=== PATIENT | female | born 1950 | race Caucasian/White ===

== ENCOUNTER 2016-02-14 | Outpatient (CLI) | payer OTHER | END 2016-02-14 13:11 | disposition home or self-care (01) | DX: M25.512 Pain in left shoulder (principal) ==

== ENCOUNTER 2016-02-21 | Outpatient (CLI) | payer OTHER | END 2016-02-21 13:12 | disposition home or self-care (01) | DX: M25.512 Pain in left shoulder (principal) ==

== ENCOUNTER 2016-03-06 | Outpatient (CLI) | payer OTHER | END 2016-03-06 15:34 | disposition home or self-care (01) | DX: M25.512 Pain in left shoulder (principal) ==

== ENCOUNTER 2016-03-13 | Outpatient (CLI) | payer OTHER | END 2016-03-13 16:36 | disposition home or self-care (01) | DX: M25.512 Pain in left shoulder (principal) ==

== ENCOUNTER 2016-03-20 | Outpatient (CLI) | payer OTHER | END 2016-03-20 15:29 | disposition home or self-care (01) | DX: M25.512 Pain in left shoulder (principal) ==

== ENCOUNTER 2016-04-03 | Outpatient (CLI) | payer OTHER | END 2016-04-03 13:12 | disposition home or self-care (01) | DX: M25.512 Pain in left shoulder (principal) ==

== ENCOUNTER 2016-04-10 | Outpatient (CLI) | payer OTHER | END 2016-04-10 13:12 | disposition home or self-care (01) ==

== ENCOUNTER 2016-04-17 13:10 | Outpatient (CLI) | payer OTHER | END 2016-04-17 13:11 | disposition home or self-care (01) | DX: M25.512 Pain in left shoulder (principal) ==

== ENCOUNTER 2016-04-24 13:20 | Outpatient (CLI) | payer OTHER | END 2016-04-24 13:21 | disposition home or self-care (01) | DX: M25.512 Pain in left shoulder (principal); M54.6 Pain in thoracic spine ==

== ENCOUNTER 2016-05-01 13:12 | Outpatient (CLI) | payer OTHER | END 2016-05-01 13:13 | disposition home or self-care (01) | DX: M25.512 Pain in left shoulder (principal) ==

== ENCOUNTER 2016-05-08 13:16 | Outpatient (CLI) | payer OTHER | END 2016-05-08 13:17 | disposition home or self-care (01) | DX: M25.512 Pain in left shoulder (principal) ==

== ENCOUNTER 2016-05-15 13:07 | Outpatient (CLI) | payer OTHER | END 2016-05-15 13:08 | disposition home or self-care (01) | DX: M25.512 Pain in left shoulder (principal) ==

== ENCOUNTER 2016-06-05 13:15 | Outpatient (CLI) | payer OTHER | END 2016-06-05 23:59 | DX: M25.512 Pain in left shoulder (principal); M54.6 Pain in thoracic spine ==

== ENCOUNTER 2016-06-12 13:14 | Outpatient (CLI) | payer OTHER | END 2016-06-12 13:15 | disposition home or self-care (01) | DX: M25.512 Pain in left shoulder (principal) ==

== ENCOUNTER 2016-06-19 13:15 | Outpatient (CLI) | payer OTHER | END 2016-06-19 13:16 | disposition home or self-care (01) | DX: M25.512 Pain in left shoulder (principal) ==

== ENCOUNTER 2016-06-22 12:05 | Outpatient (CLI) | payer OTHER | END 2016-06-22 12:06 | disposition home or self-care (01) | DX: C34.90 Malignant neoplasm of unspecified part of unspecified bronchus or lung (principal) ==

== ENCOUNTER 2016-06-26 13:34 | Outpatient (CLI) | payer OTHER | END 2016-06-26 13:35 | disposition home or self-care (01) | DX: M25.512 Pain in left shoulder (principal); M54.6 Pain in thoracic spine ==

== ENCOUNTER 2016-07-03 13:15 | Outpatient (CLI) | payer OTHER | END 2016-07-03 13:16 | disposition home or self-care (01) | LOC: CAM 13:15 | PROVIDERS: ATTEND Internal Medicine | DX: M25.512 Pain in left shoulder (principal) | CPT/HCPCS: 97810; 97811 ==

== ENCOUNTER 2016-07-10 13:20 | Outpatient (CLI) | payer OTHER | END 2016-07-10 13:21 | disposition home or self-care (01) | LOC: CAM 13:20 | PROVIDERS: ATTEND Internal Medicine | DX: M25.512 Pain in left shoulder (principal) | CPT/HCPCS: 97810; 97811 ==

== ENCOUNTER 2016-07-24 15:27 | Outpatient (CLI) | payer OTHER | END 2016-07-24 15:28 | disposition home or self-care (01) | LOC: CAM 15:27 | PROVIDERS: ATTEND Internal Medicine | DX: M25.512 Pain in left shoulder (principal) | CPT/HCPCS: 97810; 97811 ==

== ENCOUNTER 2016-07-31 13:15 | Outpatient (CLI) | payer OTHER | END 2016-07-31 13:16 | disposition home or self-care (01) | LOC: CAM 13:15 | PROVIDERS: ATTEND Internal Medicine | DX: M25.512 Pain in left shoulder (principal) | CPT/HCPCS: 97810; 97811 ==

== ENCOUNTER 2016-08-01 11:00 | Outpatient (CLI) | payer OTHER ==
[2016-08-01 14:43] LABS: BILIRUBIN,URINE NEGATIVE (NEGATIVE)
[2016-08-01 14:47] LABS: UA w/ MICROSCOPIC CHARGE YES
[2016-08-01 15:19] LABS: WBC,URINE 0-3 /HPF (0-5)
[2016-08-01 15:20] LABS: UR CULTURE IF IND NOT INDICATED
== END 2016-08-01 11:01 | disposition home or self-care (01) ==
LOC: LAB.R 11:00
PROVIDERS: ATTEND Internal Medicine
DX: N39.0 Urinary tract infection, site not specified (principal); R30.0 Dysuria; R06.00 Dyspnea, unspecified
CPT/HCPCS: 81001; 81003; 87086

== ENCOUNTER 2016-08-05 15:55 | Outpatient (CLI) | payer OTHER | END 2016-08-05 15:56 | disposition home or self-care (01) | LOC: LAB.R 15:55 | PROVIDERS: ATTEND Physician Assistant Medical | DX: R35.0 Frequency of micturition (principal) | CPT/HCPCS: 87086 ==

== ENCOUNTER 2016-08-14 13:35 | Outpatient (CLI) | payer OTHER | END 2016-08-14 13:36 | disposition home or self-care (01) | PROVIDERS: ATTEND Internal Medicine | DX: M25.50 Pain in unspecified joint (principal); M54.6 Pain in thoracic spine | CPT/HCPCS: 97810; 97811 ==

== ENCOUNTER 2016-08-21 14:22 | Outpatient (CLI) | payer OTHER | END 2016-08-21 14:23 | disposition home or self-care (01) | LOC: CAM 14:22 | PROVIDERS: ATTEND Internal Medicine | DX: M25.512 Pain in left shoulder (principal); M54.6 Pain in thoracic spine; M25.50 Pain in unspecified joint | CPT/HCPCS: 97810; 97811 ==

== ENCOUNTER 2016-08-28 13:17 | Outpatient (CLI) | payer OTHER | END 2016-08-28 13:18 | disposition home or self-care (01) | LOC: CAM 13:17 | PROVIDERS: ATTEND Internal Medicine | DX: M25.512 Pain in left shoulder (principal); M54.6 Pain in thoracic spine; M25.50 Pain in unspecified joint | CPT/HCPCS: 97810; 97811 ==

== ENCOUNTER 2016-09-04 14:14 | Outpatient (CLI) | payer OTHER | END 2016-09-04 14:15 | disposition home or self-care (01) | LOC: CAM 14:14 | PROVIDERS: ATTEND Internal Medicine | DX: M25.512 Pain in left shoulder (principal) | CPT/HCPCS: 97810; 97811 ==

== ENCOUNTER 2016-09-11 13:14 | Outpatient (CLI) | payer OTHER | END 2016-09-11 13:15 | disposition home or self-care (01) | LOC: CAM 13:14 | PROVIDERS: ATTEND Internal Medicine | DX: M25.512 Pain in left shoulder (principal) | CPT/HCPCS: 97810; 97811 ==

== ENCOUNTER 2016-09-18 14:18 | Outpatient (CLI) | payer OTHER | END 2016-09-18 14:19 | disposition home or self-care (01) | LOC: CAM 14:18 | PROVIDERS: ATTEND Internal Medicine | DX: M25.512 Pain in left shoulder (principal) | CPT/HCPCS: 97810; 97811 ==

== ENCOUNTER 2016-09-25 13:23 | Outpatient (CLI) | payer OTHER | END 2016-09-25 13:24 | disposition home or self-care (01) | LOC: CAM 13:23 | PROVIDERS: ATTEND Internal Medicine | DX: M25.512 Pain in left shoulder (principal) | CPT/HCPCS: 97810; 97811 ==

== ENCOUNTER 2016-10-02 14:13 | Outpatient (CLI) | payer OTHER | END 2016-10-02 14:14 | disposition home or self-care (01) | LOC: CAM 14:13 | PROVIDERS: ATTEND Internal Medicine | DX: M25.512 Pain in left shoulder (principal) | CPT/HCPCS: 97810; 97811 ==

== ENCOUNTER 2016-10-08 07:52 | Outpatient (CLI) | payer OTHER ==
[2016-10-08 08:20] LABS: BASOPHILS % (AUTO) 0.9 %; EOSINOPHILS # (AUTO) 0.1 10^3/uL (0.0-0.7); EOSINOPHILS % (AUTO) 1.6 %; HCT - HEMATOCRIT 36.2 % (37.0-47.0); HGB - HEMOGLOBIN 12.5 g/dL (12.0-16.0); LYMPHOCYTES # (AUTO) 1.3 10^3/uL (1.5-3.5); LYMPHOCYTES % (AUTO) 33.9 %; MEAN CORPUSCULAR HEMOGLOBIN 32.9 pg (27.0-31.0); MEAN CORPUSCULAR HGB CONC 34.5 g/dL (32.0-36.0); MEAN CORPUSCULAR VOLUME 95.3 fL (81.0-99.0); MEAN PLATELET VOLUME 7.9 fL (7.9-10.8); MONOCYTES # (AUTO) 0.3 10^3/uL (0.0-1.0); MONOCYTES % (AUTO) 8.1 %; NEUTROPHILS # (AUTO) 2.1 10^3/uL (1.5-6.6); NEUTROPHILS % (AUTO) 55.5 %; NUCLEATED RED BLOOD CELLS AUTO 0.1 /100WBC; RED CELL DISTRIBUTION WIDTH 13.3 % (12.0-15.0); UNCORRECTED WHITE BLOOD COUNT 3.8 x10^3/uL; WHITE BLOOD COUNT 3.8 x10^3/uL (4.8-10.8)
[2016-10-08 08:40] LABS: ALBUMIN/GLOBULIN RATIO 1.8 (1.0-2.2); BILIRUBIN,TOTAL 0.7 mg/dL (0.2-1.0); BUN - BLOOD UREA NITROGEN 12 mg/dL (6-20); CALCIUM 9.1 mg/dL (8.5-10.3); CARBON DIOXIDE - CO2 25 mmol/L (21-32); CHLORIDE 97 mmol/L (101-111); CHOL/HDL RATIO 2.5 (<4.4); CHOLESTEROL 236 mg/dL; CREATININE 0.6 mg/dL (0.4-1.0); GFR - MDRD 101 (>89); GLUCOSE 107 mg/dL (70-100); HDL CHOLESTEROL 96 mg/dL; LDL/HDL RATIO 1.4 (<4.4); POTASSIUM 3.9 mmol/L (3.5-5.0); SODIUM 131 mmol/L (135-145); TOTAL PROTEIN 6.9 g/dL (6.7-8.2); TRIGLYCERIDES 52 mg/dL; URIC ACID 4.1 mg/dL (2.6-7.2); VLDL CHOLESTEROL 10 mg/dL
[2016-10-08 08:51] LABS: HEMOGLOBIN A1C 0.45 g/dL
== END 2016-10-08 07:53 | disposition home or self-care (01) ==
LOC: LAB 07:52
PROVIDERS: ATTEND Internal Medicine
DX: C34.90 Malignant neoplasm of unspecified part of unspecified bronchus or lung (principal); M10.9 Gout, unspecified; E74.39 Other disorders of intestinal carbohydrate absorption; E78.5 Hyperlipidemia, unspecified; Z79.899 Other long term (current) drug therapy
CPT/HCPCS: 36415; 80053; 80061; 83036; 84550; 85025

== ENCOUNTER 2016-10-09 13:15 | Outpatient (CLI) | payer OTHER | END 2016-10-09 13:16 | disposition home or self-care (01) | LOC: CAM 13:15 | PROVIDERS: ATTEND Internal Medicine | DX: M25.512 Pain in left shoulder (principal); M54.6 Pain in thoracic spine | CPT/HCPCS: 97810; 97811 ==

== ENCOUNTER 2016-10-16 14:18 | Outpatient (CLI) | payer OTHER | END 2016-10-16 14:19 | disposition home or self-care (01) | LOC: CAM 14:18 | PROVIDERS: ATTEND Internal Medicine | DX: M25.512 Pain in left shoulder (principal); M54.6 Pain in thoracic spine | CPT/HCPCS: 97810; 97811 ==

== ENCOUNTER 2016-10-23 13:21 | Outpatient (CLI) | payer OTHER | END 2016-10-23 13:22 | disposition home or self-care (01) | LOC: CAM 13:21 | PROVIDERS: ATTEND Internal Medicine | DX: M25.512 Pain in left shoulder (principal); M54.6 Pain in thoracic spine | CPT/HCPCS: 97810; 97811 ==

== ENCOUNTER 2016-10-30 14:13 | Outpatient (CLI) | payer OTHER | END 2016-10-30 14:14 | disposition home or self-care (01) | LOC: CAM 14:13 | PROVIDERS: ATTEND Internal Medicine | DX: M25.512 Pain in left shoulder (principal); M54.6 Pain in thoracic spine | CPT/HCPCS: 97810; 97811 ==

== ENCOUNTER 2016-11-06 15:35 | Outpatient (CLI) | payer OTHER | END 2016-11-06 15:36 | disposition home or self-care (01) | LOC: CAM 15:35 | PROVIDERS: ATTEND Internal Medicine | DX: M25.512 Pain in left shoulder (principal) | CPT/HCPCS: 97813; 97814 ==

== ENCOUNTER 2016-11-13 13:22 | Outpatient (CLI) | payer OTHER | END 2016-11-13 13:23 | disposition home or self-care (01) | LOC: CAM 13:22 | PROVIDERS: ATTEND Internal Medicine | DX: M25.512 Pain in left shoulder (principal); M54.6 Pain in thoracic spine | CPT/HCPCS: 97810; 97811 ==

== ENCOUNTER 2016-11-20 15:24 | Outpatient (CLI) | payer OTHER | END 2016-11-20 15:25 | disposition home or self-care (01) | LOC: CAM 15:24 | PROVIDERS: ATTEND Internal Medicine | DX: M25.512 Pain in left shoulder (principal); M54.6 Pain in thoracic spine | CPT/HCPCS: 97813; 97814 ==

== ENCOUNTER 2016-11-27 14:14 | Outpatient (CLI) | payer OTHER | END 2016-11-27 14:15 | disposition home or self-care (01) | LOC: CAM 14:14 | PROVIDERS: ATTEND Internal Medicine | DX: M25.512 Pain in left shoulder (principal); M54.6 Pain in thoracic spine | CPT/HCPCS: 97810; 97811 ==

== ENCOUNTER 2016-12-25 14:50 | Outpatient (CLI) | payer OTHER | END 2016-12-25 14:51 | disposition home or self-care (01) | LOC: CAM 14:50 | PROVIDERS: ATTEND Internal Medicine | DX: M25.512 Pain in left shoulder (principal); M54.6 Pain in thoracic spine | CPT/HCPCS: 97810; 97811 ==

== ENCOUNTER 2017-01-08 15:06 | Outpatient (CLI) | payer OTHER | END 2017-01-08 15:07 | disposition home or self-care (01) | LOC: CAM 15:06 | PROVIDERS: ATTEND Internal Medicine | DX: M25.512 Pain in left shoulder (principal); M54.6 Pain in thoracic spine | CPT/HCPCS: 97810; 97811 ==

== ENCOUNTER 2017-01-15 13:15 | Outpatient (CLI) | payer OTHER | END 2017-01-15 13:16 | disposition home or self-care (01) | LOC: CAM 13:15 | PROVIDERS: ATTEND Internal Medicine | DX: M25.512 Pain in left shoulder (principal); M54.6 Pain in thoracic spine | CPT/HCPCS: 97810; 97811 ==

== ENCOUNTER 2017-01-22 13:16 | Outpatient (CLI) | payer OTHER | END 2017-01-22 13:17 | disposition home or self-care (01) | LOC: CAM 13:16 | PROVIDERS: ATTEND Internal Medicine | DX: M25.512 Pain in left shoulder (principal); M54.6 Pain in thoracic spine | CPT/HCPCS: 97810; 97811 ==

== ENCOUNTER 2017-03-05 13:12 | Outpatient (CLI) | payer OTHER | END 2017-03-05 13:13 | disposition home or self-care (01) | LOC: CAM 13:12 | PROVIDERS: ATTEND Internal Medicine | DX: M54.6 Pain in thoracic spine (principal); M25.512 Pain in left shoulder | CPT/HCPCS: 97810; 97811 ==

== ENCOUNTER 2017-03-12 08:17 | Outpatient (CLI) | payer OTHER | END 2017-03-12 08:18 | disposition home or self-care (01) | LOC: CAM 08:17 | PROVIDERS: ATTEND Internal Medicine | DX: M25.512 Pain in left shoulder (principal); M54.6 Pain in thoracic spine | CPT/HCPCS: 97810; 97811 ==

== ENCOUNTER 2017-03-19 13:15 | Outpatient (CLI) | payer OTHER | END 2017-03-19 13:16 | disposition home or self-care (01) | LOC: CAM 13:15 | PROVIDERS: ATTEND Internal Medicine | DX: M54.6 Pain in thoracic spine (principal); M25.512 Pain in left shoulder | CPT/HCPCS: 97810; 97811 ==

== ENCOUNTER 2017-03-26 14:02 | Outpatient (CLI) | payer OTHER | END 2017-03-26 14:03 | disposition home or self-care (01) | LOC: CAM 14:02 | PROVIDERS: ATTEND Internal Medicine | DX: M25.512 Pain in left shoulder (principal); M54.6 Pain in thoracic spine | CPT/HCPCS: 97810; 97811 ==

== ENCOUNTER 2017-04-09 13:17 | Outpatient (CLI) | payer OTHER | END 2017-04-09 13:18 | disposition home or self-care (01) | LOC: CAM 13:17 | PROVIDERS: ATTEND Internal Medicine | DX: M25.512 Pain in left shoulder (principal); M54.6 Pain in thoracic spine | CPT/HCPCS: 97810; 97811 ==

== ENCOUNTER 2017-04-16 13:19 | Outpatient (CLI) | payer OTHER | END 2017-04-16 13:20 | disposition home or self-care (01) | LOC: CAM 13:19 | PROVIDERS: ATTEND Internal Medicine | DX: M25.512 Pain in left shoulder (principal); M54.6 Pain in thoracic spine | CPT/HCPCS: 97810; 97811 ==

== ENCOUNTER 2017-04-23 13:14 | Outpatient (CLI) | payer OTHER | END 2017-04-23 13:15 | disposition home or self-care (01) | LOC: CAM 13:14 | PROVIDERS: ATTEND Internal Medicine | DX: M25.512 Pain in left shoulder (principal); M54.6 Pain in thoracic spine | CPT/HCPCS: 97810; 97811 ==

== ENCOUNTER 2017-04-30 14:14 | Outpatient (CLI) | payer OTHER | END 2017-04-30 14:15 | disposition home or self-care (01) | LOC: CAM 14:14 | PROVIDERS: ATTEND Internal Medicine | DX: M25.512 Pain in left shoulder (principal); M54.6 Pain in thoracic spine | CPT/HCPCS: 97810; 97811 ==

== ENCOUNTER 2017-05-07 14:15 | Outpatient (CLI) | payer OTHER | END 2017-05-07 14:16 | disposition home or self-care (01) | LOC: CAM 14:15 | PROVIDERS: ATTEND Internal Medicine | DX: M25.512 Pain in left shoulder (principal); M54.6 Pain in thoracic spine | CPT/HCPCS: 97810; 97811 ==

== ENCOUNTER 2017-05-14 13:09 | Outpatient (CLI) | payer OTHER | END 2017-05-14 13:10 | disposition home or self-care (01) | LOC: CAM 13:09 | PROVIDERS: ATTEND Internal Medicine | DX: M25.512 Pain in left shoulder (principal); M54.6 Pain in thoracic spine | CPT/HCPCS: 97810; 97811 ==

== ENCOUNTER 2017-05-21 13:19 | Outpatient (CLI) | payer OTHER | END 2017-05-21 13:20 | disposition home or self-care (01) | LOC: CAM 13:19 | PROVIDERS: ATTEND Internal Medicine | DX: M25.512 Pain in left shoulder (principal); M54.6 Pain in thoracic spine | CPT/HCPCS: 97810; 97811 ==

== ENCOUNTER 2017-06-04 14:11 | Outpatient (CLI) | payer OTHER | END 2017-06-04 14:12 | disposition home or self-care (01) | LOC: CAM 14:11 | PROVIDERS: ATTEND Internal Medicine | DX: M25.512 Pain in left shoulder (principal); M54.6 Pain in thoracic spine | CPT/HCPCS: 97810; 97811 ==

== ENCOUNTER 2017-06-11 13:11 | Outpatient (CLI) | payer OTHER | END 2017-06-11 13:12 | disposition home or self-care (01) | LOC: CAM 13:11 | PROVIDERS: ATTEND Internal Medicine | DX: M25.512 Pain in left shoulder (principal); M54.6 Pain in thoracic spine | CPT/HCPCS: 97810; 97811 ==

== ENCOUNTER 2017-06-18 14:13 | Outpatient (CLI) | payer OTHER | END 2017-06-18 14:14 | disposition home or self-care (01) | LOC: CAM 14:13 | PROVIDERS: ATTEND Internal Medicine | DX: M25.512 Pain in left shoulder (principal); M54.6 Pain in thoracic spine | CPT/HCPCS: 97810; 97811 ==

== ENCOUNTER 2017-06-25 14:15 | Outpatient (CLI) | payer OTHER | END 2017-06-25 14:16 | disposition home or self-care (01) | LOC: CAM 14:15 | PROVIDERS: ATTEND Internal Medicine | DX: M25.512 Pain in left shoulder (principal); M54.6 Pain in thoracic spine | CPT/HCPCS: 97810; 97811 ==

== ENCOUNTER 2017-07-02 14:14 | Outpatient (CLI) | payer OTHER | END 2017-07-02 14:15 | disposition home or self-care (01) | LOC: CAM 14:14 | PROVIDERS: ATTEND Internal Medicine | DX: M25.512 Pain in left shoulder (principal); M54.6 Pain in thoracic spine | CPT/HCPCS: 97813; 97814 ==

== ENCOUNTER 2017-07-09 15:11 | Outpatient (CLI) | payer OTHER | END 2017-07-09 15:12 | disposition home or self-care (01) | LOC: CAM 15:11 | PROVIDERS: ATTEND Internal Medicine | DX: M54.6 Pain in thoracic spine (principal) | CPT/HCPCS: 97810; 97811 ==

== ENCOUNTER 2017-07-16 14:17 | Outpatient (CLI) | payer OTHER | END 2017-07-16 14:18 | disposition home or self-care (01) | LOC: CAM 14:17 | PROVIDERS: ATTEND Internal Medicine | DX: M25.512 Pain in left shoulder (principal); M54.6 Pain in thoracic spine | CPT/HCPCS: 97810; 97811 ==

== ENCOUNTER 2017-07-23 14:20 | Outpatient (CLI) | payer OTHER | END 2017-07-23 14:21 | disposition home or self-care (01) | LOC: CAM 14:20 | PROVIDERS: ATTEND Internal Medicine | DX: M25.512 Pain in left shoulder (principal); M54.6 Pain in thoracic spine | CPT/HCPCS: 97810; 97811 ==

== ENCOUNTER 2017-07-30 14:16 | Outpatient (CLI) | payer OTHER | END 2017-07-30 14:17 | disposition home or self-care (01) | LOC: CAM 14:16 | PROVIDERS: ATTEND Internal Medicine | DX: M54.6 Pain in thoracic spine (principal); M25.512 Pain in left shoulder | CPT/HCPCS: 97810; 97811 ==

== ENCOUNTER 2017-08-06 14:14 | Outpatient (CLI) | payer OTHER | END 2017-08-06 14:15 | disposition home or self-care (01) | LOC: CAM 14:14 | PROVIDERS: ATTEND Internal Medicine | DX: M25.512 Pain in left shoulder (principal); M54.6 Pain in thoracic spine | CPT/HCPCS: 97810; 97811 ==

== ENCOUNTER 2017-08-13 14:16 | Outpatient (CLI) | payer OTHER | END 2017-08-13 14:17 | disposition home or self-care (01) | LOC: CAM 14:16 | PROVIDERS: ATTEND Internal Medicine | DX: M25.512 Pain in left shoulder (principal); M54.6 Pain in thoracic spine | CPT/HCPCS: 97810; 97811 ==

== ENCOUNTER 2017-08-20 14:15 | Outpatient (CLI) | payer OTHER | END 2017-08-20 14:16 | disposition home or self-care (01) | LOC: CAM 14:15 | PROVIDERS: ATTEND Internal Medicine | DX: M25.512 Pain in left shoulder (principal); M54.6 Pain in thoracic spine | CPT/HCPCS: 97810; 97811 ==

== ENCOUNTER 2017-08-27 14:18 | Outpatient (CLI) | payer OTHER | END 2017-08-27 14:19 | disposition home or self-care (01) | LOC: CAM 14:18 | PROVIDERS: ATTEND Internal Medicine | DX: M25.512 Pain in left shoulder (principal); M54.6 Pain in thoracic spine | CPT/HCPCS: 97810; 97811 ==

== ENCOUNTER 2017-09-02 08:30 | Outpatient (CLI) | payer OTHER | END 2017-09-02 08:31 | LOC: LAB.R 08:30 | PROVIDERS: ATTEND Internal Medicine | DX: N30.00 Acute cystitis without hematuria (principal) | CPT/HCPCS: 87086 ==

== ENCOUNTER 2017-09-03 14:15 | Outpatient (CLI) | payer OTHER | END 2017-09-03 14:16 | disposition home or self-care (01) | LOC: CAM 14:15 | PROVIDERS: ATTEND Internal Medicine | DX: M25.512 Pain in left shoulder (principal); M54.6 Pain in thoracic spine | CPT/HCPCS: 97810; 97811 ==

== ENCOUNTER 2017-09-10 14:15 | Outpatient (CLI) | payer OTHER | END 2017-09-10 14:16 | disposition home or self-care (01) | LOC: CAM 14:15 | PROVIDERS: ATTEND Internal Medicine | DX: M25.512 Pain in left shoulder (principal); M54.6 Pain in thoracic spine | CPT/HCPCS: 97810; 97811 ==

== ENCOUNTER 2017-09-17 14:10 | Outpatient (CLI) | payer OTHER | END 2017-09-17 14:11 | disposition home or self-care (01) | LOC: CAM 14:10 | PROVIDERS: ATTEND Internal Medicine | DX: M25.512 Pain in left shoulder (principal); M54.6 Pain in thoracic spine | CPT/HCPCS: 97810; 97811 ==

== ENCOUNTER 2017-10-01 14:14 | Outpatient (CLI) | payer OTHER | END 2017-10-01 14:15 | disposition home or self-care (01) | LOC: CAM 14:14 | PROVIDERS: ATTEND Internal Medicine | DX: M25.512 Pain in left shoulder (principal); M54.6 Pain in thoracic spine | CPT/HCPCS: 97810; 97811 ==

== ENCOUNTER 2017-10-15 14:11 | Outpatient (CLI) | payer OTHER | END 2017-10-15 14:12 | disposition home or self-care (01) | LOC: CAM 14:11 | PROVIDERS: ATTEND Internal Medicine | DX: M54.6 Pain in thoracic spine (principal); M25.512 Pain in left shoulder | CPT/HCPCS: 97810; 97811 ==

== ENCOUNTER 2017-10-21 08:43 | Outpatient (CLI) | payer OTHER ==
[2017-10-21 09:42] LABS: BASOPHILS % (AUTO) 0.5 %; EOSINOPHILS % (AUTO) 1.1 %; HGB - HEMOGLOBIN 12.7 g/dL (12.0-16.0); LYMPHOCYTES # (AUTO) 1.1 10^3/uL (1.5-3.5); LYMPHOCYTES % (AUTO) 25.9 %; MEAN CORPUSCULAR HEMOGLOBIN 33.5 pg (27.0-31.0); MEAN CORPUSCULAR HGB CONC 35.1 g/dL (32.0-36.0); MEAN CORPUSCULAR VOLUME 95.4 fL (81.0-99.0); MEAN PLATELET VOLUME 7.8 fL (7.9-10.8); MONOCYTES # (AUTO) 0.3 10^3/uL (0.0-1.0); MONOCYTES % (AUTO) 7.5 %; NEUTROPHILS # (AUTO) 2.7 10^3/uL (1.5-6.6); PLT - PLATELET COUNT 174 10^3/uL (130-450); RED BLOOD COUNT 3.79 10^6/uL (4.20-5.40); RED CELL DISTRIBUTION WIDTH 13.4 % (12.0-15.0); WHITE BLOOD COUNT 4.1 x10^3/uL (4.8-10.8)
[2017-10-21 10:03] LABS: ALBUMIN 4.4 g/dL (3.2-5.5); ALBUMIN/GLOBULIN RATIO 1.7 (1.0-2.2); ALKALINE PHOSPHATASE 60 IU/L (42-121); ALT ALANINE AMINOTRANSFERASE 22 IU/L (10-60); AST ASPARTATE AMINOTRANSFERASE 25 IU/L (10-42); BILIRUBIN,TOTAL 0.9 mg/dL (0.2-1.0); BUN - BLOOD UREA NITROGEN 15 mg/dL (6-20); CALCIUM 9.1 mg/dL (8.5-10.3); CARBON DIOXIDE - CO2 26 mmol/L (21-32); CHLORIDE 97 mmol/L (101-111); CHOL/HDL RATIO 2.2 (<4.4); CHOLESTEROL 226 mg/dL; CREATININE 0.7 mg/dL (0.4-1.0); GFR - MDRD 84 (>89); GLUCOSE 100 mg/dL (70-100); HDL CHOLESTEROL 105 mg/dL; LDL CHOLESTEROL,CALCULATED 113 mg/dL; LDL/HDL RATIO 1.1 (<4.4); SODIUM 133 mmol/L (135-145); URIC ACID 3.9 mg/dL (2.6-7.2); VLDL CHOLESTEROL 8 mg/dL
[2017-10-21 10:28] LABS: HB2 TOTAL 13.3 g/dL; HEMOGLOBIN A1C 0.42 g/dL
== END 2017-10-21 08:44 | disposition home or self-care (01) ==
LOC: LAB 08:43
PROVIDERS: ATTEND Internal Medicine
DX: C34.90 Malignant neoplasm of unspecified part of unspecified bronchus or lung (principal); M10.9 Gout, unspecified; E74.39 Other disorders of intestinal carbohydrate absorption; E78.5 Hyperlipidemia, unspecified; I10 Essential (primary) hypertension
CPT/HCPCS: 36415; 80053; 80061; 83036; 83721; 84443; 84550; 85025

== ENCOUNTER 2017-10-22 14:11 | Outpatient (CLI) | payer OTHER | END 2017-10-22 14:12 | disposition home or self-care (01) | LOC: CAM 14:11 | PROVIDERS: ATTEND Internal Medicine | DX: M25.512 Pain in left shoulder (principal); M54.6 Pain in thoracic spine | CPT/HCPCS: 97810; 97811 ==

== ENCOUNTER 2017-10-29 14:10 | Outpatient (CLI) | payer OTHER | END 2017-10-29 14:11 | disposition home or self-care (01) | LOC: CAM 14:10 | PROVIDERS: ATTEND Internal Medicine | DX: M25.512 Pain in left shoulder (principal); M54.6 Pain in thoracic spine | CPT/HCPCS: 97810; 97811 ==

== ENCOUNTER 2017-11-12 14:09 | Outpatient (CLI) | payer OTHER | END 2017-11-12 14:10 | disposition home or self-care (01) | LOC: CAM 14:09 | PROVIDERS: ATTEND Internal Medicine | DX: M25.512 Pain in left shoulder (principal); M54.6 Pain in thoracic spine ==

== ENCOUNTER → 2017-11-12 | Outpatient (CLI) | payer OTHER | LOC: CAM 14:09 | PROVIDERS: ATTEND Internal Medicine | DX: M25.512 Pain in left shoulder (principal); M54.6 Pain in thoracic spine | CPT/HCPCS: 97810; 97811 ==

== ENCOUNTER 2017-11-18 08:15 | Outpatient (CLI) | payer OTHER ==
--- NOTE | 2017-11-18 13:46 | CT Report ---
Reason: POSTMENOPAUSAL, MAXILLARY SINUSITIS Procedure Date: 11/18/2017 Accession Number: [id number] / [id number] Procedure: CT - Sinuses CPT Code: FULL RESULT: EXAM: CT SINUS EXAM DATE: 11/18/2017 08:38 AM. HISTORY: COMPARISONS: SINUSES 07/01/2013 10:27 AM. TECHNIQUE: Routine multi-axial CT imaging performed through the sinuses. Iodinated IV contrast: None. Reconstructions: Coronal. In accordance with CT protocol optimization, one or more of the following dose reduction techniques were utilized for this exam: automated exposure control, adjustment of mA and/or KV based on patient size, or use of iterative reconstructive technique. FINDINGS: RIGHT Frontal: Normal. Ethmoid: Minimal mucosal thickening. No air-fluid levels. Maxillary: Normal. Sphenoid: Normal. Drainage Pathways: Ostiomeatal unit patent. Right shelly bullosa. LEFT Frontal: Normal. Ethmoid: Minimal mucosal thickening. No air-fluid levels. Maxillary: Normal. Sphenoid: Normal. Drainage Pathways: Ostiomeatal unit patent. Nasal Cavity: Normal. No mass or significant anatomic abnormality evident. Osseous Structures: Unremarkable. Orbits: Unremarkable. Other: None. IMPRESSION: 1. Minimal mucosal thickening in the ethmoid air cells. Otherwise normal exam. RADIA
--- NOTE | 2017-11-19 11:27 | DEXA Report ---
Reason: POSTMENOPAUSAL, MAXILLARY SINUSITIS Procedure Date: 11/18/2017 Accession Number: [id number] / [id number] Procedure: DEX - Dexa Spine and/or Hip CPT Code: FULL RESULT: EXAM: Dexa Spine and/or Hip DATE: 11/18/2017 8:45 AM CLINICAL HISTORY: POSTMENOPAUSAL, MAXILLARY SINUSITIS TECHNIQUE: Dual energy x-ray absorptiometry (DXA) was performed on a [employer] System. Regions measured are the AP Spine, femoral neck, and if needed forearm. COMPARISON: None. In accordance with the International Society for Clinical Densitometry (ISCD) guidelines, data from previous exams may be reanalyzed using current recommendations and techniques. This is done to allow a more accurate basis for comparison with the current study. FINDINGS: The data for the lumbar spine is as follows: BMD (g/cm/cm) T-SCORE Z-SCORE REGION L1 0.833 -2.5 -0.5 L2 0.989 -1.8 0.2 L3 1.001 -1.7 0.3 L4 0.984 -1.8 0.2 TOTAL 0.956 -1.9 0.1 NOTE: All evaluable vertebrae are used for classification The data for the hip is as follows: BMD (g/cm/cm) T-SCORE Z-SCORE REGION Neck 0.704 -2.4 -0.7 TOTAL 0.761 -2.0 -0.5 NOTE: The femoral neck or total proximal femur, whichever is lowest, is used for classification. IMPRESSION: THE WHO CLASSIFICATION BASED ON THE INTERNATIONAL REFERENCE STANDARD IS OSTEOPENIA. THE FRACTURE RISK IS INCREASED. RECOMMENDATION: Patients with diagnosis of osteoporosis or osteopenia should have regular bone mineral density assessment. For those eligible for Medicare, routine testing is allowed once every 2 years. Testing frequency can be increased for patients who have rapidly progressing disease or for those who are receiving medical therapy to restore bone mass. COMMENT: World Health Organization (WHO) definitions for osteoporosis and osteopenia: NORMAL BMD: T-score at -1.0 or higher, fracture risk is low OSTEOPENIA BMD: T-score between -1.0 and -2.5, fracture risk is increased. OSTEOPOROSIS BMD: T-score at -2.5 or lower, fracture risk is high. National Osteoporosis Foundation recommends: 1. Obtain adequate dietary calcium (at least 1200 mg per day) and vitamin D (400-800 international units per day). 2. Participate, as appropriate, in regular weightbearing and muscle-strengthening exercise. 3. Avoid tobacco use and reduce alcohol and caffeine intake. 4. For more detailed information see the website at www.NOF.org.
== END 2017-11-18 08:16 | disposition home or self-care (01) ==
LOC: DI 08:15
PROVIDERS: ATTEND Internal Medicine
DX: J32.0 Chronic maxillary sinusitis (principal); M85.89 Other specified disorders of bone density and structure, multiple sites; Z78.0 Asymptomatic menopausal state
CPT/HCPCS: 70486; 77080

== ENCOUNTER 2017-11-19 13:12 | Outpatient (CLI) | payer OTHER | END 2017-11-19 13:13 | disposition home or self-care (01) | LOC: CAM 13:12 | PROVIDERS: ATTEND Internal Medicine | DX: M25.512 Pain in left shoulder (principal); M54.6 Pain in thoracic spine ==

== ENCOUNTER 2017-11-26 13:12 | Outpatient (CLI) | payer OTHER | END 2017-11-26 13:13 | disposition home or self-care (01) | LOC: CAM 13:12 | PROVIDERS: ATTEND Internal Medicine | DX: M25.512 Pain in left shoulder (principal); M54.6 Pain in thoracic spine | CPT/HCPCS: 97813; 97814 ==

== ENCOUNTER 2017-12-03 13:15 | Outpatient (CLI) | payer OTHER | END 2017-12-03 13:16 | disposition home or self-care (01) | LOC: CAM 13:15 | PROVIDERS: ATTEND Internal Medicine | DX: M25.512 Pain in left shoulder (principal); M54.6 Pain in thoracic spine | CPT/HCPCS: 97810; 97811 ==

== ENCOUNTER 2017-12-10 13:03 | Outpatient (CLI) | payer OTHER | END 2017-12-10 13:04 | disposition home or self-care (01) | LOC: CAM 13:03 | PROVIDERS: ATTEND Internal Medicine | DX: M25.512 Pain in left shoulder (principal); M54.6 Pain in thoracic spine | CPT/HCPCS: 97813; 97814 ==

== ENCOUNTER 2017-12-15 11:31 | Outpatient (CLI) | payer OTHER ==
--- NOTE | 2017-12-16 09:00 | Mammography Report ---
Reason: SCREENING MAMMO Procedure Date: 12/15/2017 Accession Number: [id number] / [id number] Procedure: [facility] - Screening Mammo Dig Bilat CPT Code: FULL RESULT: EXAM: Screening Mammo Dig Bilat DATE: 12/15/2017 12:11 PM CLINICAL HISTORY: 67 year-old nulliparous female with history of early menses for screening. TECHNIQUE: Bilateral CC and MLO views were obtained. COMPARISON: 10/05/2015, 08/25/2007. FINDINGS: The breasts demonstrate scattered fibroglandular densities bilaterally. No suspicious masses, clustered microcalcifications, or regions of architectural distortion are identified. IMPRESSION: Negative examination RECOMMENDATION: Routine annual screening unless otherwise clinically indicated. BIRADS CATEGORY 1: Negative STANDARD QUALIFYING STATEMENTS: 1. This examination was not reviewed with the aid of Computer-Aided Detection (CAD). 2. A negative or benign imaging report should not delay biopsy if clinically suspicious findings are present. Consider surgical consultation if warrented. More than 5% of cancers are not identified by imaging. 3. Dense breasts may obscure an underlying neoplasm. 4. This examination was reviewed without the aid of 3D breast imaging (tomosynthesis).
== END 2017-12-15 11:32 | disposition home or self-care (01) ==
LOC: DI 11:31
DX: Z12.31 Encounter for screening mammogram for malignant neoplasm of breast (principal)
CPT/HCPCS: 77067

== ENCOUNTER 2017-12-17 13:12 | Outpatient (CLI) | payer OTHER | END 2017-12-17 13:13 | disposition home or self-care (01) | LOC: CAM 13:12 | PROVIDERS: ATTEND Internal Medicine | DX: M25.512 Pain in left shoulder (principal); M54.6 Pain in thoracic spine | CPT/HCPCS: 97810; 97811 ==

== ENCOUNTER 2017-12-24 13:16 | Outpatient (CLI) | payer OTHER | END 2017-12-24 13:17 | disposition home or self-care (01) | LOC: CAM 13:16 | PROVIDERS: ATTEND Internal Medicine | DX: M25.512 Pain in left shoulder (principal); M54.6 Pain in thoracic spine | CPT/HCPCS: 97810; 97811 ==

== ENCOUNTER 2018-01-07 14:10 | Outpatient (CLI) | payer OTHER | END 2018-01-07 14:11 | disposition home or self-care (01) | LOC: CAM 14:10 | PROVIDERS: ATTEND Internal Medicine | DX: M25.512 Pain in left shoulder (principal); M54.6 Pain in thoracic spine | CPT/HCPCS: 97810; 97811 ==

== ENCOUNTER 2018-01-14 13:15 | Outpatient (CLI) | payer OTHER | END 2018-01-14 13:16 | disposition home or self-care (01) | LOC: CAM 13:15 | PROVIDERS: ATTEND Internal Medicine | DX: M25.512 Pain in left shoulder (principal); M54.6 Pain in thoracic spine | CPT/HCPCS: 97813; 97814 ==

== ENCOUNTER 2018-01-19 10:11 | Outpatient (CLI) | payer OTHER ==
--- NOTE | 2018-01-19 12:55 | XRAY Report ---
Reason: LUNG CANCER Procedure Date: 01/19/2018 Accession Number: [id number] / [id number] Procedure: XR - Chest 2 View X-Ray CPT Code: 27379 FULL RESULT: EXAM: CHEST RADIOGRAPHY EXAM DATE: 01/19/2018 10:29 AM. CLINICAL HISTORY: LUNG CANCER. COMPARISON: 06/22/2016. TECHNIQUE: 2 views. FINDINGS: Lungs/Pleura: Again seen is left-sided volume loss due to prior lobectomy. No new pulmonary consolidation or opacities are seen. No evidence for pleural effusion or pneumothorax. Mediastinum: Stable heart size and mediastinum. Mild atheromatous calcification of the aortic arch. Other: Osteopenia again evident. IMPRESSION: 1. No new pulmonary opacities and nor consolidation seen. RADIA
== END 2018-01-19 10:12 | disposition home or self-care (01) ==
LOC: DI 10:11
PROVIDERS: ATTEND Internal Medicine Hematology & Oncology
DX: C34.90 Malignant neoplasm of unspecified part of unspecified bronchus or lung (principal)
CPT/HCPCS: 71046

== ENCOUNTER 2018-01-21 14:10 | Outpatient (CLI) | payer OTHER | END 2018-01-21 14:11 | disposition home or self-care (01) | LOC: CAM 14:10 | PROVIDERS: ATTEND Internal Medicine | DX: M25.512 Pain in left shoulder (principal); M54.6 Pain in thoracic spine | CPT/HCPCS: 97810; 97811 ==

== ENCOUNTER 2018-03-04 15:12 | Outpatient (CLI) | payer BC | END 2018-03-04 15:13 | disposition home or self-care (01) | LOC: CAM 15:12 | PROVIDERS: ATTEND Physician Assistant Medical | DX: G62.0 Drug-induced polyneuropathy (principal); T45.1X5A Adverse effect of antineoplastic and immunosuppressive drugs, initial encounter | CPT/HCPCS: 97810; 97811 ==

== ENCOUNTER 2018-03-18 14:01 | Outpatient (CLI) | payer BC | END 2018-03-18 14:02 | disposition home or self-care (01) | LOC: CAM 14:01 | PROVIDERS: ATTEND Physician Assistant Medical | DX: G62.0 Drug-induced polyneuropathy (principal); T45.1X5A Adverse effect of antineoplastic and immunosuppressive drugs, initial encounter | CPT/HCPCS: 97813; 97814 ==

== ENCOUNTER 2018-04-01 13:12 | Outpatient (CLI) | payer BC | END 2018-04-01 13:13 | disposition home or self-care (01) | LOC: CAM 13:12 | PROVIDERS: ATTEND Physician Assistant Medical | DX: G62.0 Drug-induced polyneuropathy (principal); T45.1X5A Adverse effect of antineoplastic and immunosuppressive drugs, initial encounter | CPT/HCPCS: 97810; 97811 ==

== ENCOUNTER 2018-04-15 15:36 | Outpatient (CLI) | payer BC | END 2018-04-15 15:37 | disposition home or self-care (01) | LOC: CAM 15:36 | PROVIDERS: ATTEND Physician Assistant Medical | DX: M25.512 Pain in left shoulder (principal) | CPT/HCPCS: 97810; 97811 ==

== ENCOUNTER 2018-04-29 14:14 | Outpatient (CLI) | payer BC | END 2018-04-29 14:15 | disposition home or self-care (01) | LOC: CAM 14:14 | PROVIDERS: ATTEND Physician Assistant Medical | DX: M25.512 Pain in left shoulder (principal) | CPT/HCPCS: 97810; 97811 ==

== ENCOUNTER 2018-05-06 14:15 | Outpatient (CLI) | payer BC | END 2018-05-06 14:16 | disposition home or self-care (01) | LOC: CAM 14:15 | PROVIDERS: ATTEND Physician Assistant Medical | DX: M25.512 Pain in left shoulder (principal) | CPT/HCPCS: 97813; 97814 ==

== ENCOUNTER 2018-05-26 08:37 | Outpatient (CLI) | payer MEDICARE, OTHER ==
[2018-05-26 09:03] LABS: CALCIUM 9.2 mg/dL (8.5-10.3); CREATININE 0.6 mg/dL (0.4-1.0); URIC ACID 3.4 mg/dL (2.6-7.2)
[2018-05-26 10:53] LABS: BILIRUBIN,URINE NEGATIVE (NEGATIVE); GLUCOSE, URINE (UA) NEGATIVE (NEGATIVE); KETONES,URINE (UA) NEGATIVE (NEGATIVE); LEUKOCYTE ESTERASE, URINE NEGATIVE (NEGATIVE); NITRITE,URINE NEGATIVE (NEGATIVE); OCCULT BLOOD,URINE NEGATIVE (NEGATIVE); PROTEIN,URINE NEGATIVE (NEGATIVE); UROBILINOGEN,URINE 0.2 (NORMAL) E.U./dL (NORMAL)
[2018-05-26 10:58] LABS: CLARITY,URINE HAZY (CLEAR)
[2018-05-26 11:04] LABS: BACTERIA,URINE Few /HPF (None Seen); RBC,URINE 0-5 /HPF (0-5); SQUAMOUS EPITHELIAL CELL,UR RARE Squamous (<= Few)
== END 2018-05-26 08:38 | disposition home or self-care (01) ==
LOC: LAB 08:37
PROVIDERS: ATTEND Family Medicine
DX: M10.9 Gout, unspecified (principal); N39.9 Disorder of urinary system, unspecified
CPT/HCPCS: 36415; 80048; 81001; 81003; 84550; 87086

== ENCOUNTER 2018-07-13 07:48 | Outpatient (CLI) | payer MEDICARE, OTHER ==
--- NOTE | 2018-07-13 13:11 | CT Report ---
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 COMPARISON: SINUSES 11/18/2017 8:29 AM BRAIN W/WO 07/19/2013 11:02 AM. TECHNIQUE: Multiaxial CT images were obtained from the foramen magnum to the vertex. Reformats: Sagittal and coronal. IV contrast: None. In accordance with CT protocol optimization, one or more of the following dose reduction techniques were utilized for this exam: automated exposure control, adjustment of mA and/or KV based on patient size, or use of iterative reconstructive technique. FINDINGS: Parenchyma: No intraparenchymal hemorrhage. No evidence of mass, midline shift, or CT findings of infarction. Bradshaw-white differentiation is distinct. Extraaxial Spaces: Normal for age. No subdural or epidural collections identified. Ventricles: Normal in size and position. Sinuses and Orbits: Imaged paranasal sinuses, orbits, and mastoids show no significant abnormality. Bones: No evidence of fracture or calvarial defect. Other: None. IMPRESSION: Normal head CT. RADIA
== END 2018-07-13 07:49 | disposition home or self-care (01) ==
LOC: DI 07:48
PROVIDERS: ATTEND Family Medicine
DX: G52.0 Disorders of olfactory nerve (principal)
CPT/HCPCS: 70450

== ENCOUNTER 2018-12-02 08:19 | Outpatient (CLI) | payer MEDICARE, OTHER ==
[2018-12-02 09:01] LABS: BASOPHILS % (AUTO) 0.6 %; EOSINOPHILS # (AUTO) 0.1 10^3/uL (0.0-0.7); EOSINOPHILS % (AUTO) 2.1 %; HGB - HEMOGLOBIN 12.3 g/dL (12.0-16.0); LYMPHOCYTES # (AUTO) 1.3 10^3/uL (1.5-3.5); LYMPHOCYTES % (AUTO) 37.6 %; MEAN CORPUSCULAR HEMOGLOBIN 31.9 pg (27.0-31.0); MEAN CORPUSCULAR VOLUME 96.9 fL (81.0-99.0); MEAN PLATELET VOLUME 10.1 fL (7.9-10.8); MONOCYTES # (AUTO) 0.3 10^3/uL (0.0-1.0); MONOCYTES % (AUTO) 9.9 %; NEUTROPHILS # (AUTO) 1.6 10^3/uL (1.5-6.6); NEUTROPHILS % (AUTO) 48.9 %; PLT - PLATELET COUNT 175 10^3/uL (130-450); RED BLOOD COUNT 3.85 10^6/uL (4.20-5.40); RED CELL DISTRIBUTION WIDTH 12.7 % (12.0-15.0); WHITE BLOOD COUNT 3.4 x10^3/uL (4.8-10.8)
[2018-12-02 09:02] LABS: ALBUMIN 4.3 g/dL (3.2-5.5); ALBUMIN/GLOBULIN RATIO 1.5 (1.0-2.2); ALKALINE PHOSPHATASE 68 IU/L (42-121); ALT ALANINE AMINOTRANSFERASE 19 IU/L (10-60); AST ASPARTATE AMINOTRANSFERASE 23 IU/L (10-42); BILIRUBIN,TOTAL 0.8 mg/dL (0.2-1.0); BUN - BLOOD UREA NITROGEN 17 mg/dL (6-20); CARBON DIOXIDE - CO2 26 mmol/L (21-32); CHLORIDE 99 mmol/L (101-111); CHOL/HDL RATIO 2.4 (<4.4); CHOLESTEROL 232 mg/dL; CREATININE 0.7 mg/dL (0.4-1.0); GFR - MDRD 84 (>89); GLUCOSE 106 mg/dL (70-100); HDL CHOLESTEROL 96 mg/dL; LDL CHOLESTEROL,CALCULATED 127 mg/dL; LDL/HDL RATIO 1.3 (<4.4); SODIUM 135 mmol/L (135-145); TOTAL PROTEIN 7.1 g/dL (6.7-8.2); URIC ACID 3.6 mg/dL (2.6-7.2); VLDL CHOLESTEROL 9 mg/dL
== END 2018-12-02 08:20 | disposition home or self-care (01) ==
LOC: LAB 08:19
PROVIDERS: ATTEND Family Medicine
DX: L30.9 Dermatitis, unspecified (principal); L30.1 Dyshidrosis [pompholyx]; E78.5 Hyperlipidemia, unspecified; C34.90 Malignant neoplasm of unspecified part of unspecified bronchus or lung; M10.9 Gout, unspecified; I10 Essential (primary) hypertension
CPT/HCPCS: 36415; 80053; 80061; 83721; 84443; 84550; 85025

== ENCOUNTER 2018-12-18 08:48 | Outpatient (CLI) | payer MEDICARE, OTHER ==
--- NOTE | 2018-12-19 08:33 | XRAY Report ---
Reason: LT HIP PAIN Procedure Date: 12/18/2018 Accession Number: [id number] / [id number] Procedure: XR - Hip w/Pelvis 1V LT CPT Code: Final Report FULL RESULT: EXAM: LEFT HIP RADIOGRAPHY EXAM DATE: 12/18/2018 09:12 AM HISTORY: Left hip pain. COMPARISONS: None available. TECHNIQUE: 2 views. FINDINGS: Bones: Osteopenia is present. No fractures or bone lesion. Joints: Joint alignment is normal bilaterally. There is joint space narrowing with sclerosis and osteophytes in the left hip. These findings are present to a lesser degree in the right hip. Soft Tissues: A few pelvic phleboliths are noted. No soft tissue swelling. IMPRESSION: 1. Osteopenia. No fracture on x-ray imaging. 2. Degenerative changes in both hips, left greater than right. Note: Osteopenia can limit detection of trabecular fracture. If the patient cannot ambulate, recommend MRI hip to exclude occult fracture. RADIA
== END 2018-12-18 08:49 | disposition home or self-care (01) ==
LOC: DI 08:48
PROVIDERS: ATTEND Family Medicine
DX: M16.0 Bilateral primary osteoarthritis of hip (principal); M85.88 Other specified disorders of bone density and structure, other site

== ENCOUNTER 2019-01-19 07:51 | Outpatient (CLI) | payer MEDICARE, OTHER ==
--- NOTE | 2019-01-19 13:17 | CT Report ---
Reason: LUNG CA Procedure Date: 01/19/2019 Accession Number: [id number] / [id number] Procedure: CT - CHEST WO CPT Code: Final Report FULL RESULT: EXAM: CT CHEST EXAM DATE: 01/19/2019 08:05 AM. CLINICAL HISTORY: Lung carcinoma. COMPARISONS: CHEST W/O 01/21/2017 12:18 PM. TECHNIQUE: Routine helical CT imaging was performed through the chest. IV contrast: None. Reconstructions: Coronal and sagittal. In accordance with CT protocol optimization, one or more of the following dose reduction techniques were utilized for this exam: automated exposure control, adjustment of mA and/or KV based on patient size, or use of iterative reconstructive technique. FINDINGS: Lungs/Pleura: Previously seen right middle lobe nodule now measures 5 mm on image 220 series 5, the nodule remains well rounded without spiculation. Additional sub-3 mm nodules are identified which are retrospectively stable for example left upper lobe image 111 series 4, 2 mm nodule. These are likely detected on today's exam due to differences in technique. The patient is status post left upper lobectomy. There is no lung mass or pulmonary edema. There is no pleural effusion or pneumothorax. Mediastinum: There is no hilar or mediastinal lymphadenopathy. Aortic arch is mildly calcified. Coronary arteries are at least moderately calcified. No pericardial effusion. Bones: Unremarkable. Visualized Abdomen: Unremarkable. Other: None. IMPRESSION: Mild interval increase in size of the 5 mm right middle lobe nodule. RADIA
== END 2019-01-19 07:52 | disposition home or self-care (01) ==
LOC: DI 07:51
PROVIDERS: ATTEND Internal Medicine Hematology & Oncology
DX: C34.90 Malignant neoplasm of unspecified part of unspecified bronchus or lung (principal)
CPT/HCPCS: 71250

== ENCOUNTER 2019-12-09 07:52 | Outpatient (CLI) | payer MEDICARE, OTHER ==
[2019-12-09 08:12] LABS: BASOPHILS % (AUTO) 0.5 %; EOSINOPHILS # (AUTO) 0.1 10^3/uL (0.0-0.7); EOSINOPHILS % (AUTO) 1.6 %; HGB - HEMOGLOBIN 13.4 g/dL (12.0-16.0); LYMPHOCYTES # (AUTO) 1.2 10^3/uL (1.5-3.5); LYMPHOCYTES % (AUTO) 32.7 %; MEAN CORPUSCULAR HEMOGLOBIN 33.6 pg (27.0-31.0); MEAN CORPUSCULAR HGB CONC 34.8 g/dL (32.0-36.0); MEAN CORPUSCULAR VOLUME 96.5 fL (81.0-99.0); MEAN PLATELET VOLUME 9.4 fL (7.9-10.8); MONOCYTES # (AUTO) 0.3 10^3/uL (0.0-1.0); NEUTROPHILS # (AUTO) 2.1 10^3/uL (1.5-6.6); NEUTROPHILS % (AUTO) 55.9 %; PLT - PLATELET COUNT 175 10^3/uL (130-450); RED BLOOD COUNT 3.99 10^6/uL (4.20-5.40); RED CELL DISTRIBUTION WIDTH 12.2 % (12.0-15.0); WHITE BLOOD COUNT 3.8 x10^3/uL (4.8-10.8)
[2019-12-09 08:33] LABS: ALBUMIN 4.2 g/dL (3.2-5.5); ALBUMIN/GLOBULIN RATIO 1.6 (1.0-2.2); ALKALINE PHOSPHATASE 74 IU/L (42-121); ALT ALANINE AMINOTRANSFERASE 20 IU/L (10-60); AST ASPARTATE AMINOTRANSFERASE 21 IU/L (10-42); BILIRUBIN,TOTAL 0.9 mg/dL (0.2-1.0); BUN - BLOOD UREA NITROGEN 15 mg/dL (6-20); CALCIUM 9.1 mg/dL (8.5-10.3); CARBON DIOXIDE - CO2 26 mmol/L (21-32); CHLORIDE 96 mmol/L (101-111); CHOL/HDL RATIO 2.3 (<4.4); CHOLESTEROL 231 mg/dL; CREATININE 0.6 mg/dL (0.4-1.0); GLUCOSE 108 mg/dL (70-100); HDL CHOLESTEROL 101 mg/dL; LDL CHOLESTEROL,CALCULATED 121 mg/dL; LDL/HDL RATIO 1.2 (<4.4); SODIUM 132 mmol/L (135-145); TOTAL PROTEIN 6.8 g/dL (6.7-8.2); URIC ACID 3.5 mg/dL (2.6-7.2); VLDL CHOLESTEROL 9 mg/dL
[2019-12-09 12:03] LABS: HEMOGLOBIN A1c% 5.1 % (4.27-6.07)
== END 2019-12-09 07:53 | disposition home or self-care (01) ==
LOC: LAB 07:52
PROVIDERS: ATTEND Family Medicine
DX: L21.0 Seborrhea capitis (principal); L30.1 Dyshidrosis [pompholyx]; M85.80 Other specified disorders of bone density and structure, unspecified site; M19.90 Unspecified osteoarthritis, unspecified site; C34.90 Malignant neoplasm of unspecified part of unspecified bronchus or lung; E74.9 Disorder of carbohydrate metabolism, unspecified; E78.5 Hyperlipidemia, unspecified; I10 Essential (primary) hypertension; E74.39 Other disorders of intestinal carbohydrate absorption
CPT/HCPCS: 36415; 80053; 80061; 83036; 83721; 84443; 84550; 85025

== ENCOUNTER 2020-01-10 08:22 | Outpatient (CLI) | payer MEDICARE, OTHER ==
--- NOTE | 2020-01-10 12:05 | CT Report ---
PROCEDURE: CHEST WO INDICATIONS: LUNG CA TECHNIQUE: Noncontrast 5 mm thick sections acquired from the pulmonary apices to the posterior costophrenic angl es. 7 mm thick coronal and sagittal MIP reformats were then acquired. For radiation dose reduction, the following was used: automated exposure control, adjustment of mA and/or kV according to patient size. COMPARISON: CT chest 01/19/2019 FINDINGS: Image quality: Excellent. Lungs and pleura: Postsurgical changes again seen from left upper lobectomy. There is stable scarrin g at the medial left lung base adjacent to the left heart border. A 4 mm in average diameter nodule i n the right middle lobe (image 214 of series 4) does not appear significantly changed when compared t o the CT from 01/19/[address] from 01/21/2017 given differences in technique. Linear scarring o r atelectasis is seen in the right lung base. No new pulmonary nodule is seen. No acute air space opa cities. No pleural effusions or pneumothorax. Central and peripheral airways are patent and normal in caliber. Mediastinum: Moderate coronary artery calcifications are present. Heart size is normal. No pericard ial effusion. No mediastinal adenopathy by size criteria on this noncontrast exam. Thoracic aorta a nd central pulmonary arteries are normal in size. Esophagus is normal in caliber. No hiatal hernia. Bones and chest wall: No suspicious bony lesions. No vertebral body compression fractures. No axil reza or supraclavicular adenopathy by size criteria. The thyroid is normal in size. Mild multilevel degenerative changes in the spine. Abdomen: Visualized upper abdominal solid organs and bowel loops appear normal in the absence of con trast. IMPRESSION: 1. Stable postsurgical changes from left upper lobectomy. 2. Unchanged 4 mm nodule in the right middle lobe when compared to the CTs from 01/19/2019 and 01/21. No new pulmonary nodule. 3. No significant thoracic lymphadenopathy. Reviewed by: Derick Núñez MD on 01/10/2020 11:04 AM [facility] Approved by: Derick Núñez MD on 01/10/2020 11:04 AM [facility] Station ID: [id number]
== END 2020-01-10 08:23 | disposition home or self-care (01) ==
LOC: DI 08:22
PROVIDERS: ATTEND Internal Medicine Hematology & Oncology
DX: Z08 Encounter for follow-up examination after completed treatment for malignant neoplasm (principal); R91.1 Solitary pulmonary nodule; Z85.118 Personal history of other malignant neoplasm of bronchus and lung
CPT/HCPCS: 71250

== ENCOUNTER 2020-05-22 08:25 | Outpatient (CLI) | payer MEDICARE, OTHER ==
--- NOTE | 2020-05-22 10:03 | DEXA Report ---
PROCEDURE: Dexa Spine and/or Hip INDICATIONS: POST MENOPAUSAL TECHNIQUE: Dual energy x-ray absorptiometry (DXA) was performed on a [employer] System. Regions measur ed are the AP Spine, femoral neck, and if needed forearm. COMPARISON: None. FINDINGS: Lumbar Spine: Bone Mineral Density 0.975 g/cm/cm,T score -1.7, osteopenia, change from previous 2.0% Left Hip: Bone Mineral Density 0.733 g/cm/cm,T score -2.2, osteopenia, change from previous -3.7% Left Femoral Neck: Bone Mineral Density 0.688 g/cm/cm, T score -2.5, osteoporosis (T score greater or equal to -1.0: NORMAL) (T score from -1.1 to -2.4: OSTEOPENIA) (T score less than or equal to -2.5 to: OSTEOPOROSIS) Impression: 1. Osteoporosis, seen in the left femoral neck puts the patient at a high-risk of fracture. 2. Interval decrease in left hip bone mineral density since the prior study. Patients with diagnosis of osteoporosis or osteopenia should have regular bone mineral density assess ment. For those eligible for Medicare, routine testing is allowed once every 2 years. Testing frequ ency can be increased for patients who have rapidly progressing disease or for those who are receivin g medical therapy to restore bone mass. Reviewed by: Susana Todd MD on 05/22/2020 10:01 AM PDT Approved by: Susana Todd MD on 05/22/2020 10:01 AM PDT Station ID: [id number]
== END 2020-05-22 08:26 | disposition home or self-care (01) ==
LOC: DI 08:25
PROVIDERS: ATTEND Family Medicine
DX: M81.0 Age-related osteoporosis without current pathological fracture (principal)

== ENCOUNTER 2020-08-30 08:00 | Outpatient (CLI) | payer MEDICARE, OTHER ==
[2020-08-30 11:54] LABS: BASOPHILS % (AUTO) 0.6 %; EOSINOPHILS % (AUTO) 0.4 %; HCT - HEMATOCRIT 39.8 % (37.0-47.0); HGB - HEMOGLOBIN 13.3 g/dL (12.0-16.0); LYMPHOCYTES % (AUTO) 19.6 %; MEAN CORPUSCULAR HGB CONC 33.4 g/dL (32.0-36.0); MEAN CORPUSCULAR VOLUME 98.8 fL (81.0-99.0); MONOCYTES # (AUTO) 0.4 10^3/uL (0.0-1.0); MONOCYTES % (AUTO) 7.2 %; NEUTROPHILS # (AUTO) 3.5 10^3/uL (1.5-6.6); PLT - PLATELET COUNT 180 10^3/uL (130-450); RED BLOOD COUNT 4.03 10^6/uL (4.20-5.40); RED CELL DISTRIBUTION WIDTH 12.4 % (12.0-15.0); WHITE BLOOD COUNT 4.8 x10^3/uL (4.8-10.8)
[2020-08-30 12:27] LABS: THYROID STIMULATING HORMONE 2.15 uIU/mL (0.34-5.60)
[2020-08-30 12:29] LABS: ALBUMIN 4.8 g/dL (3.2-5.5); ALBUMIN/GLOBULIN RATIO 1.8 (1.0-2.2); ALKALINE PHOSPHATASE 77 IU/L (42-121); ALT ALANINE AMINOTRANSFERASE 18 IU/L (10-60); AST ASPARTATE AMINOTRANSFERASE 20 IU/L (10-42); BILIRUBIN,TOTAL 0.9 mg/dL (0.2-1.0); BUN - BLOOD UREA NITROGEN 14 mg/dL (6-20); CALCIUM 9.4 mg/dL (8.5-10.3); CARBON DIOXIDE - CO2 27 mmol/L (21-32); CHLORIDE 98 mmol/L (101-111); CHOL/HDL RATIO 2.2 (<4.4); CHOLESTEROL 230 mg/dL; CREATININE 0.6 mg/dL (0.4-1.0); GFR - MDRD 100 (>89); GLUCOSE 107 mg/dL (70-100); HDL CHOLESTEROL 105 mg/dL; POTASSIUM 4.2 mmol/L (3.5-5.0); SODIUM 136 mmol/L (135-145); TOTAL PROTEIN 7.4 g/dL (6.7-8.2); TRIGLYCERIDES 31 mg/dL; URIC ACID 3.5 mg/dL (2.6-7.2)
[2020-08-30 13:05] LABS: ESTIMATED AVERAGE GLUCOSE 103 mg/dL (70-100); HEMOGLOBIN A1c% 5.2 % (4.27-6.07)
== END 2020-08-30 23:59 | disposition home or self-care (01) ==
LOC: LAB.WCP 08:00
PROVIDERS: ATTEND Family Medicine
DX: F41.8 Other specified anxiety disorders (principal); R73.9 Hyperglycemia, unspecified; C34.90 Malignant neoplasm of unspecified part of unspecified bronchus or lung; M10.9 Gout, unspecified; E78.5 Hyperlipidemia, unspecified; I10 Essential (primary) hypertension; M19.032 Primary osteoarthritis, left wrist; M19.031 Primary osteoarthritis, right wrist
CPT/HCPCS: 36415; 80053; 80061; 83036; 83721; 84443; 84550; 85025; 85651

== ENCOUNTER 2021-01-08 08:04 | Outpatient (CLI) | payer MEDICARE, OTHER ==
--- NOTE | 2021-01-08 09:04 | XRAY Report ---
PROCEDURE: Chest 2 View X-Ray INDICATIONS: HISTORY OF LUNG CA TECHNIQUE: 2 view(s) of the chest. COMPARISON: 01/19/[address] dated 01/10/2020. FINDINGS: Surgical changes and devices: None. Lungs and pleura: No pleural effusions or pneumothorax. Stable postsurgical changes of remote left u pper lobe resection. Lungs are clear. Mediastinum: Mediastinal contours are normal. Heart size is normal. Bones and chest wall: No suspicious bony abnormalities. Soft tissues appear unremarkable. IMPRESSION: Stable examination of the chest without acute cardiopulmonary abnormalities. Reviewed by: Ady Chaparro MD on 01/08/2021 9:03 AM PST Approved by: Ady Chaparro MD on 01/08/2021 9:03 AM PST Station ID: [id number]
== END 2021-01-08 08:05 | disposition home or self-care (01) ==
LOC: DI 08:04
PROVIDERS: ATTEND Internal Medicine Hematology & Oncology
DX: Z85.118 Personal history of other malignant neoplasm of bronchus and lung (principal)

== ENCOUNTER 2021-08-01 07:49 | Outpatient (CLI) | payer MEDICARE, OTHER ==
[2021-08-01 08:03] LABS: BASOPHILS % (AUTO) 0.6 %; EOSINOPHILS # (AUTO) 0.1 10^3/uL (0.0-0.7); EOSINOPHILS % (AUTO) 1.4 %; HCT - HEMATOCRIT 39.8 % (37.0-47.0); HGB - HEMOGLOBIN 13.7 g/dL (12.0-16.0); LYMPHOCYTES # (AUTO) 1.3 10^3/uL (1.5-3.5); LYMPHOCYTES % (AUTO) 37.3 %; MEAN CORPUSCULAR HGB CONC 34.4 g/dL (32.0-36.0); MEAN CORPUSCULAR VOLUME 95.9 fL (81.0-99.0); MEAN PLATELET VOLUME 9.1 fL (7.9-10.8); MONOCYTES # (AUTO) 0.3 10^3/uL (0.0-1.0); MONOCYTES % (AUTO) 8.8 %; NEUTROPHILS # (AUTO) 1.8 10^3/uL (1.5-6.6); NEUTROPHILS % (AUTO) 51.6 %; PLT - PLATELET COUNT 157 10^3/uL (130-450); RED BLOOD COUNT 4.15 10^6/uL (4.20-5.40); RED CELL DISTRIBUTION WIDTH 12.2 % (12.0-15.0); WHITE BLOOD COUNT 3.5 x10^3/uL (4.8-10.8)
[2021-08-01 08:22] LABS: ALBUMIN 4.4 g/dL (3.2-5.5); ALBUMIN/GLOBULIN RATIO 1.7 (1.0-2.2); ALKALINE PHOSPHATASE 70 IU/L (42-121); ALT ALANINE AMINOTRANSFERASE 18 IU/L (10-60); AST ASPARTATE AMINOTRANSFERASE 19 IU/L (10-42); BILIRUBIN,TOTAL 0.7 mg/dL (0.2-1.0); BUN - BLOOD UREA NITROGEN 14 mg/dL (6-20); CALCIUM 9.1 mg/dL (8.5-10.3); CARBON DIOXIDE - CO2 27 mmol/L (21-32); CHLORIDE 98 mmol/L (101-111); CHOL/HDL RATIO 2.5 (<4.4); CHOLESTEROL 239 mg/dL; CREATININE 0.7 mg/dL (0.4-1.0); GFR - MDRD 83 (>89); GLUCOSE 113 mg/dL (70-100); HDL CHOLESTEROL 97 mg/dL; LDL CHOLESTEROL,CALCULATED 131 mg/dL; LDL/HDL RATIO 1.4 (<4.4); SODIUM 134 mmol/L (135-145); TRIGLYCERIDES 55 mg/dL; VLDL CHOLESTEROL 11 mg/dL
[2021-08-01 08:34] LABS: THYROID STIMULATING HORMONE 3.98 uIU/mL (0.34-5.60)
[2021-08-01 10:34] LABS: ESTIMATED AVERAGE GLUCOSE 100 mg/dL (70-100); HEMOGLOBIN A1c% 5.1 % (4.27-6.07)
== END 2021-08-01 07:50 | disposition home or self-care (01) ==
LOC: LAB 07:49
PROVIDERS: ATTEND Family Medicine
DX: M19.072 Primary osteoarthritis, left ankle and foot (principal); M19.071 Primary osteoarthritis, right ankle and foot; F41.9 Anxiety disorder, unspecified; R73.9 Hyperglycemia, unspecified; C34.90 Malignant neoplasm of unspecified part of unspecified bronchus or lung; M10.9 Gout, unspecified; E78.5 Hyperlipidemia, unspecified; I10 Essential (primary) hypertension
CPT/HCPCS: 36415; 80053; 80061; 83036; 83721; 84443; 85025

== ENCOUNTER 2022-08-01 08:03 | Outpatient (CLI) | payer MEDICARE, OTHER ==
[2022-08-01 08:25] LABS: BASOPHILS % (AUTO) 0.6 %; EOSINOPHILS % (AUTO) 1.2 %; HGB - HEMOGLOBIN 13.6 g/dL (12.0-16.0); LYMPHOCYTES # (AUTO) 1.2 10^3/uL (1.5-3.5); LYMPHOCYTES % (AUTO) 35.6 %; MEAN CORPUSCULAR HEMOGLOBIN 32.2 pg (27.0-31.0); MEAN CORPUSCULAR VOLUME 94.6 fL (81.0-99.0); MEAN PLATELET VOLUME 9.5 fL (7.9-10.8); MONOCYTES # (AUTO) 0.3 10^3/uL (0.0-1.0); MONOCYTES % (AUTO) 9.7 %; NEUTROPHILS # (AUTO) 1.7 10^3/uL (1.5-6.6); NEUTROPHILS % (AUTO) 52.6 %; PLT - PLATELET COUNT 158 10^3/uL (130-450); RED BLOOD COUNT 4.23 10^6/uL (4.20-5.40); RED CELL DISTRIBUTION WIDTH 12.1 % (12.0-15.0); WHITE BLOOD COUNT 3.3 x10^3/uL (4.8-10.8)
[2022-08-01 08:39] LABS: ALBUMIN 4.3 g/dL (3.2-5.5); ALBUMIN/GLOBULIN RATIO 1.6 (1.0-2.2); ALKALINE PHOSPHATASE 71 IU/L (42-121); ALT ALANINE AMINOTRANSFERASE 19 IU/L (10-60); AST ASPARTATE AMINOTRANSFERASE 19 IU/L (10-42); BILIRUBIN,TOTAL 0.9 mg/dL (0.2-1.0); BUN - BLOOD UREA NITROGEN 19 mg/dL (6-20); CARBON DIOXIDE - CO2 29 mmol/L (21-32); CHLORIDE 102 mmol/L (101-111); CHOL/HDL RATIO 2.3 (<4.4); CHOLESTEROL 223 mg/dL; CREATININE 0.6 mg/dL (0.4-1.0); GFR - MDRD 99 (>89); GLUCOSE 108 mg/dL (70-100); HDL CHOLESTEROL 96 mg/dL; LDL CHOLESTEROL,CALCULATED 118 mg/dL; LDL/HDL RATIO 1.2 (<4.4); POTASSIUM 3.8 mmol/L (3.5-5.0); SODIUM 138 mmol/L (135-145); TRIGLYCERIDES 47 mg/dL; VLDL CHOLESTEROL 9 mg/dL
[2022-08-01 08:49] LABS: THYROID STIMULATING HORMONE 3.03 uIU/mL (0.34-5.60)
== END 2022-08-01 08:04 | disposition home or self-care (01) ==
LOC: LAB 08:03
PROVIDERS: ATTEND Family Medicine
DX: I10 Essential (primary) hypertension (principal); F41.9 Anxiety disorder, unspecified; C34.90 Malignant neoplasm of unspecified part of unspecified bronchus or lung; M10.9 Gout, unspecified; E78.5 Hyperlipidemia, unspecified; M19.072 Primary osteoarthritis, left ankle and foot; M19.071 Primary osteoarthritis, right ankle and foot
CPT/HCPCS: 36415; 80053; 80061; 83721; 84443; 85025

== ENCOUNTER 2022-09-25 08:13 | Outpatient (CLI) | payer MEDICARE, OTHER ==
--- NOTE | 2022-09-25 13:26 | DEXA Report ---
PROCEDURE: Dexa Spine and/or Hip INDICATIONS: OSTEOPOROSIS TECHNIQUE: Dual energy x-ray absorptiometry (DXA) was performed on a [employer] System. Regions measur ed are the AP Spine, femoral neck, and if needed forearm. COMPARISON: 05/22/2020, 11/18/2017 FINDINGS: Lumbar Spine: Bone Mineral Density 0.9621 g/cm/cm,T score -1.8. There has been no statistically significant change in bone mineral density since the prior study. Left Femoral Neck: Bone Mineral Density 0.676 g/cm/cm, T score -2.6. Left Hip: Bone Mineral Density 0.707 g/cm/cm,T score -2.4. There has been no statistically significant change i n bone mineral density since the prior study. (T score greater or equal to -1.0: NORMAL) (T score from -1.1 to -2.4: OSTEOPENIA) (T score less than or equal to -2.5 to: OSTEOPOROSIS) Impression: By WHO criteria, this patient has osteoporosis. No statistical interval change in bone minteral density of the lumbar spine. No statistical interval change in bone minteral density of the hip. Patients with diagnosis of osteoporosis or osteopenia should have regular bone mineral density assess ment. For those eligible for Medicare, routine testing is allowed once every 2 years. Testing frequ ency can be increased for patients who have rapidly progressing disease or for those who are receivin g medical therapy to restore bone mass. Reviewed by: Adrian Wilson MD on 09/25/2022 1:24 PM PDT Approved by: Adrian Wilson MD on 09/25/2022 1:24 PM PDT Station ID: [id number]
--- NOTE | 2022-09-25 13:27 | XRAY Report ---
PROCEDURE: Lumbar Spine Complete INDICATIONS: LUMBAR RADICULOPATHY/OSTEOARTHITIS OF HIP TECHNIQUE: 5 views of the lumbar spine were acquired. COMPARISON: None. FINDINGS: Bones: 5 [id number] vertebrae are present. There is normal bony alignment. No vertebral body compression fractures. No suspicious bony lesions. No pars defects on oblique images. Mild lower lum bar facet arthropathy. Soft tissues: Overlying bowel gas pattern is normal. No suspicious soft tissue calcifications. IMPRESSION: Mild lower lumbar facet arthropathy. No acute bony abnormality. Reviewed by: Adrian Wilson MD on 09/25/2022 1:26 PM PDT Approved by: Adrian Wilson MD on 09/25/2022 1:26 PM PDT Station ID: [id number]
--- NOTE | 2022-09-25 13:29 | XRAY Report ---
PROCEDURE: Hips 2V BILAT INDICATIONS: LUMBAR RADICULOPATHY/OSTEOARTHITIS OF HIP TECHNIQUE: AP view the pelvis and bilateral frog-leg lateral views of the hips were acquired. COMPARISON: None. FINDINGS: Bones: No fractures or dislocations. No suspicious bony lesions. Moderate to severe degenerative ar thritis of the left hip. Mild to moderate degenerative arthritis of the right hip. Soft tissues: No suspicious soft tissue calcifications or masses. IMPRESSION: Bilateral hip degenerative arthritis, left greater than right. Reviewed by: Adrian Wilson MD on 09/25/2022 1:27 PM PDT Approved by: Adrian Wilson MD on 09/25/2022 1:27 PM PDT Station ID: [id number]
== END 2022-09-25 08:14 | disposition home or self-care (01) ==
LOC: DI 08:13
PROVIDERS: ATTEND Family Medicine
DX: M81.0 Age-related osteoporosis without current pathological fracture (principal); M16.0 Bilateral primary osteoarthritis of hip; M47.26 Other spondylosis with radiculopathy, lumbar region; Z78.0 Asymptomatic menopausal state

== ENCOUNTER 2023-01-20 09:40 | Outpatient (CLI) | payer MEDICARE, OTHER ==
--- NOTE | 2023-01-20 13:56 | XRAY Report ---
PROCEDURE: Chest 2 View X-Ray INDICATIONS: LUNG CA TECHNIQUE: 2 views of the chest were acquired. COMPARISON: 01/08/2021 chest film, chest CT without contrast dated 01/13/2022. FINDINGS: Surgical changes and devices: Remote partial pulmonary resection involving the left upper lobe. Lungs and pleura: No pleural effusions or pneumothorax. Lungs are clear. Mediastinum: Mediastinal contours appear normal. Heart size is normal. Bones and chest wall: No suspicious bony lesions. Overlying soft tissues appear unremarkable. IMPRESSION: No acute cardiopulmonary process. No pulmonary masses noted. Reviewed by: Adrian Wilson MD on 01/20/2023 1:54 PM PST Approved by: Adrian Wilson MD on 01/20/2023 1:54 PM PST Station ID: [id number]
== END 2023-01-20 09:41 | disposition home or self-care (01) ==
LOC: DI 09:40
PROVIDERS: ATTEND Internal Medicine Hematology & Oncology
DX: C34.92 Malignant neoplasm of unspecified part of left bronchus or lung (principal)

== ENCOUNTER 2023-07-21 07:31 | Outpatient (CLI) | payer MEDICARE, OTHER ==
[2023-07-21 07:57] LABS: BASOPHILS % (AUTO) 0.7 %; EOSINOPHILS # (AUTO) 0.1 10^3/uL (0.0-0.7); EOSINOPHILS % (AUTO) 1.4 %; HCT - HEMATOCRIT 40.9 % (37.0-47.0); HGB - HEMOGLOBIN 13.5 g/dL (12.0-16.0); LYMPHOCYTES # (AUTO) 1.4 10^3/uL (1.5-3.5); LYMPHOCYTES % (AUTO) 32.8 %; MEAN CORPUSCULAR HEMOGLOBIN 31.9 pg (27.0-31.0); MEAN CORPUSCULAR VOLUME 96.7 fL (81.0-99.0); MEAN PLATELET VOLUME 9.4 fL (7.9-10.8); MONOCYTES # (AUTO) 0.4 10^3/uL (0.0-1.0); MONOCYTES % (AUTO) 9.7 %; NEUTROPHILS # (AUTO) 2.3 10^3/uL (1.5-6.6); NEUTROPHILS % (AUTO) 55.2 %; PLT - PLATELET COUNT 178 10^3/uL (130-450); RED BLOOD COUNT 4.23 10^6/uL (4.20-5.40); RED CELL DISTRIBUTION WIDTH 12.3 % (12.0-15.0); WHITE BLOOD COUNT 4.2 x10^3/uL (4.8-10.8)
[2023-07-21 08:12] LABS: ALBUMIN 4.4 g/dL (3.2-5.5); ALBUMIN/GLOBULIN RATIO 1.8 (1.0-2.2); ALKALINE PHOSPHATASE 76 IU/L (42-121); ALT ALANINE AMINOTRANSFERASE 11 IU/L (10-60); AST ASPARTATE AMINOTRANSFERASE 16 IU/L (10-42); BILIRUBIN,TOTAL 0.6 mg/dL (0.2-1.0); BUN - BLOOD UREA NITROGEN 13 mg/dL (6-20); CALCIUM 9.5 mg/dL (8.5-10.3); CARBON DIOXIDE - CO2 28 mmol/L (21-32); CHLORIDE 102 mmol/L (101-111); CHOL/HDL RATIO 2.4 (<4.4); CHOLESTEROL 216 mg/dL; CREATININE 0.7 mg/dL (0.6-1.3); GFR - MDRD 83 (>89); GLUCOSE 104 mg/dL (74-104); HDL CHOLESTEROL 91 mg/dL; LDL CHOLESTEROL,CALCULATED 114 mg/dL; LDL/HDL RATIO 1.3 (<4.4); POTASSIUM 3.7 mmol/L (3.5-4.5); SODIUM 136 mmol/L (135-145); TOTAL PROTEIN 6.9 g/dL (6.4-8.9); TRIGLYCERIDES 54 mg/dL (48-352); URIC ACID 3.8 mg/dL (2.3-6.6); VLDL CHOLESTEROL 11 mg/dL
[2023-07-21 08:27] LABS: THYROID STIMULATING HORMONE 3.15 uIU/mL (0.34-5.60)
== END 2023-07-21 07:32 | disposition home or self-care (01) ==
LOC: LAB 07:31
PROVIDERS: ATTEND Family Medicine
DX: M16.9 Osteoarthritis of hip, unspecified (principal); M81.0 Age-related osteoporosis without current pathological fracture; R73.9 Hyperglycemia, unspecified; C34.90 Malignant neoplasm of unspecified part of unspecified bronchus or lung; M10.9 Gout, unspecified; E78.5 Hyperlipidemia, unspecified; I10 Essential (primary) hypertension
CPT/HCPCS: 36415; 80053; 80061; 83721; 84443; 84550; 85025

== ENCOUNTER 2023-09-26 09:37 | Outpatient (CLI) | payer MEDICARE, OTHER ==
--- NOTE | 2023-09-27 02:20 | XRAY Report ---
PROCEDURE: Knee 3V RT INDICATIONS: XR KNEE 3 VIEW TECHNIQUE: 3 views of the knee(s) were acquired. COMPARISON: None. FINDINGS: Bones: No fractures or dislocations. No suspicious bony lesions. Soft tissues: Trace knee joint effusion. No suspicious soft tissue calcifications or masses. IMPRESSION: No acute bony abnormality. Reviewed by: Adrian Wilson MD on 09/27/2023 2:19 AM PDT Approved by: Adrian Wilson MD on 09/27/2023 2:19 AM PDT Station ID: [id number]
== END 2023-09-26 09:38 | disposition home or self-care (01) ==
LOC: DI 09:37
PROVIDERS: ATTEND Physician Assistant
DX: S80.01XA Contusion of right knee, initial encounter (principal)